=== PATIENT | male | born 1995 | race African-American/Black ===

== ENCOUNTER → 2017-02-20 | Outpatient (REF) | payer OTHER ==
[2017-02-20 11:12] LABS: % NORMAL FORMS 6 % (>=4); IMMOTILITY 58 %; NON PROGRESSIVE MOTILITY (c) 10 %; PROGRESSIVE MOTILITY (a) 32 % (>=32); TOTAL FUNCTIONAL 5.1 M/Ejac.; TOTAL MOTILITY 42 % (>=40); TOTAL PROGRESSIVE SPERM 34.8 M/Ejac.
[2017-02-20 11:13] LABS: SPERM ABNORMAL FORMS OTHER (SPECIFIY)
== END ==
LOC: M LAB REF 10:44
PROVIDERS: ATTEND Obstetrics & Gynecology
DX: N46.8 Other male infertility (principal)

== ENCOUNTER → 2017-06-20 | Outpatient (REF) | payer OTHER ==
[2017-06-20 10:27] LABS: NON PROGRESSIVE MOTILITY (c) 8 %; PROGRESSIVE MOTILITY (a) 23 % (>=32); SPERM ABNORMAL FORMS OTHER (SPECIFIY); TOTAL MOTILITY 31 % (>=40)
[2017-06-20 10:28] LABS: % NORMAL FORMS 5 % (>=4); IMMOTILITY 69 %
[2017-06-20 10:29] LABS: SPERM# 131.1 M/Ejac (>=39); TOTAL FUNCTIONAL 3.7 M/Ejac.; TOTAL PROGRESSIVE SPERM 30.2 M/Ejac.
== END ==
LOC: M LAB REF 09:49
PROVIDERS: ATTEND Obstetrics & Gynecology
DX: N46.8 Other male infertility (principal)

== ENCOUNTER 2017-08-10 20:47 | Emergency (ER) | payer OTHER ==
[~2017-08-10] VITALS: Ht 160 cm; Wt 59.1 kg
[2017-08-10 20:47] VITALS: BP 153/98
[2017-08-10] MEDS ORDERED: VITA-182 PO (20:55)
[2017-08-10] MEDS ORDERED: VITA100T98 PO (20:55)
[2017-08-10] MEDS ORDERED: FISH100049 PO (20:55)
[2017-08-10 21:11] LABS: BASO # 0.1 10^3/uL (0.0-0.2); BASO % 0.7 % (0.0-1.0); EOS # 0.1 10^3/uL (0.0-0.50); EOS % 0.6 % (0.0-3.0); IMMATURE GRANULOCYTE % 0.2 % (0-0); LYMPH # 1.8 10^3/uL (1.5-6.5); LYMPH % 16.9 % (24.0-44.0); MEAN CORPUSCULAR HEMOGLOBIN 20.8 pg (27.0-33.0); MEAN CORPUSCULAR HGB CONC 30.7 g/dl (32.0-36.5); MEAN CORPUSCULAR VOLUME 67.8 fl (80.0-96.0); MONO # 1.2 10^3/uL (0.0-0.8); MONO % 11.4 % (0.0-5.0); NEUTROPHILS # 7.3 10^3/uL (1.8-7.7); NEUTROPHILS % 70.2 % (36.0-66.0); PLATELET COUNT, AUTOMATED 293 10^3/uL (150-450); WHITE BLOOD COUNT 10.4 10^3/uL (4.0-10.0)
[2017-08-10 21:30] LABS: ANION GAP 9 MEQ/L (8-16); BLOOD UREA NITROGEN 14 MG/DL (7-18); CALCIUM LEVEL 9.3 MG/DL (8.5-10.1); CARBON DIOXIDE LEVEL 28 MEQ/L (21-32); CHLORIDE LEVEL 104 MEQ/L (98-107); CREATININE FOR GFR 1.05 MG/DL (0.70-1.30); GLOMERULAR FILTRATION RATE > 60.0 (>60); GLUCOSE, FASTING 96 MG/DL (70-105); POTASSIUM SERUM 3.1 MEQ/L (3.5-5.1); SODIUM LEVEL 141 MEQ/L (136-145)
[2017-08-10] MEDS ORDERED: LIDOCAINE W/EPINEPHRINE 1% 20ML VIAL SC ONE (22:15)
--- NOTE | 2017-08-11 08:04 | REP ---
Clinical: Shortness of breath . Comparison: None . Findings: The mediastinum and cardiac silhouette are stable and within normal limits for portable technique. The lung rivera are clear without acute consolidation, effusion, or pneumothorax. Skeletal structures are intact. Impression: No acute cardiopulmonary process appreciated. Signed by Garcia Balderas MD 08/11/2017 07:56 A
== END 2017-08-10 22:41 | disposition home or self-care (01) ==
LOC: M ED 20:47
DX: S31.809A Unspecified open wound of unspecified buttock, initial encounter (principal); X99.1XXA Assault by knife, initial encounter; Y92.481 Parking lot as the place of occurrence of the external cause; Y93.89 Activity, other specified; Y99.8 Other external cause status; Z79.899 Other long term (current) drug therapy